=== PATIENT | male | born 1975 | race African-American/Black ===

== ENCOUNTER 2022-06-11 15:44 | Outpatient (CLI) | payer OTHER, SELFPAY ==
[2022-06-11 21:17] LABS: Albumin* 4.9 g/dL (3.3-5.0); Chloride* 101 mmol/L (96-114)
[2022-06-11 21:18] LABS: Sodium* 138 mmol/L (135-149)
[2022-06-11 21:20] LABS: Alkaline Phosphatase* 72 U/L (40-150); Aspartate Amino Transferase* 36 U/L (12-35); Bilirubin Total* 1.5 mg/dL (0.1-1.5); Blood Urea Nitrogen* 23 mg/dL (5-24); Carbon Dioxide* 28 mmol/L (20-32); Cholesterol* 217 mg/dL (90-199); Creatinine* 1.2 mg/dL (0.5-1.5); Estimated Glomerular Filt Rate 76 ml/min; Glucose* 89 mg/dL (60-115); Total Protein* 8.1 g/dL (6.0-8.3); Triglycerides* 108 mg/dL (40-149)
[2022-06-11 21:21] LABS: Alanine Aminotransferase* 32 U/L (4-50); Calcium* 9.5 mg/dL (8.4-10.6); HDL Cholesterol* 56 mg/dL (>=40); LDL Cholesterol Calculated 139 mg/dL (<100)
== END 2022-06-11 15:45 | disposition home or self-care (01) ==
PROVIDERS: PCP Internal Medicine; Visit Provider Internal Medicine
DX: Z00.00 Encounter for general adult medical examination without abnormal findings (principal); E78.5 Hyperlipidemia, unspecified; Z30.09 Encounter for other general counseling and advice on contraception
CPT/HCPCS: 80053; 80061

== ENCOUNTER 2022-07-03 07:02 | Outpatient (CLI) | payer OTHER, SELFPAY ==
--- NOTE | 2022-07-03 07:15 | CRLHL7_ITS ---
For Patients: As a result of the Century Cures Act, medical imaging exams and procedure reports are released immediately into your electronic medical record. You may view this report before your referring provider. If you have questions, please contact your health care provider. INDICATION: Upper abdominal pain TECHNIQUE: Ultrasound abdomen limited. Sonographic images of the right upper quadrant were obtained using sosa-scale and color Doppler images. COMPARISON: 06/01/2019 FINDINGS: Liver: Normal in size with diffuse fatty infiltration. No masses. No intrahepatic biliary dilatation. Gallbladder: No stones or sludge. Normal wall thickness. No pericholecystic fluid. Common bile duct: 6 mm. Pancreas: Normal. Right kidney: 10.7 cm. Normal echotexture and cortex. No masses, stones, or hydronephrosis. Vasculature: Proximal abdominal aorta is. IMPRESSION: Normal gallbladder and common bile duct. Fatty infiltration of the liver. Dictated by Giancarlo Cunningham MD @ 07/03/2022 8:53:09 AM (Electronically Signed)
== END 2022-07-03 07:03 | disposition home or self-care (01) ==
LOC: US 07:03
PROVIDERS: PCP Internal Medicine; Visit Provider Internal Medicine
DX: R10.9 Unspecified abdominal pain (principal); K76.0 Fatty (change of) liver, not elsewhere classified
CPT/HCPCS: 76705

== ENCOUNTER 2022-07-19 12:53 | Outpatient (CLI) | payer OTHER, SELFPAY | END 2022-07-19 12:54 | disposition home or self-care (01) | LOC: OP CLINIC 12:54 | PROVIDERS: PCP Internal Medicine; Visit Provider Internal Medicine | DX: Z12.11 Encounter for screening for malignant neoplasm of colon (principal); R19.8 Other specified symptoms and signs involving the digestive system and abdomen | CPT/HCPCS: 43239; 45378; 88305; 88342; 99153; J2250; J3010 ==

== ENCOUNTER 2023-09-09 08:15 | Outpatient (CLI) | payer OTHER, SELFPAY ==
--- OUTSIDE RECORDS SUMMARY | 2023-09-12 08:00 | XMS_ITS | Clinical Summary ---
Author Name Unknown Organization [facility] Address [place], [place] [address] Care Team Providers Care Health Care Aide Name Role Phone Unknown, Primary Care Provider Alexander e Allergies No known active allergies Medications Medication Sig Dispensed Refills Start Date End Date Status amLODIPine (NORVASC) 5 mg tabletIndications:Essentia l hypertension Take 1 tablet by mouth once daily. 90 tablet 3 04/03/2018 Active ezetimibe (ZETIA) 10 mg tabletIndications:Pure hypercholesterolemia Take 1 tablet by mouth once daily. Pt states no longer taking 01/11/2020 90 tablet 3 01/11/2020 Active carvediloL (COREG) 6.25 mg tabletIndications:Hyperten hayley Take 1 tablet by mouth 2 times daily with meals. 180 tablet 3 01/14/2020 Active rosuvastatin (CRESTOR) 10 mg tabletIndications:Pure hypercholesterolemia Take 1 Tablet (10 mg) by mouth at bedtime. Needs [facility] appt for further refills 90 tablet. 01/30/2021 Active Immunizations Name Administration Dates Next Due AMB Influenza, IIV3 (Age >=3 years)(Flu Clinic Only) 03/17/2013,03/05/2012,03/12/2011 AMB Influenza, IIV4 PF (=>6 mos Flulaval,Fluzone Fluarix)(Flu Clinic Only) 03/06/2020,03/01/2017,03/02/2016, 01 5,03/17/2014 Influenza, IIV3 (Age >=3 years) 03/13/2010,02/24 Td (Age >=7 Years) 09/04/2005 Family History Medical History Relation Name Comments Heart Disease Father Other Other 1 father renal tr ansplant in 40s Hypertension Other 2 Diabetes Other 3 Hyperlipidemia Other 4 dyslipidemia Relation Name Status Comments Father Other 1 Other 2 Other 3 Other 4 Social History Tobacco Use Types Packs/Day Years Used Date Smoking Tobacco: Never Smokeless Tobacco: Never Alcohol Use Standard Drinks/Week Comments Not Currently 0 (1 standard drink = 0.6 oz pur e alcohol) Social Connections Answer Date Recorded Frequency of Communication with Friends and Fami ly Not on file 06/02/2021 Financial Resource Strain Answer Date R ecorded Difficulty of Paying Living Expenses Not on file 06/02/2021 Difficulty of Paying Living Expenses Not on file 06/02/2021 Sex and Gender Information Value Date Recorded Sex Assigned at Not on file Gender Identity Not on file Sexual Orientation Not on file Obstetrics History Last Filed Vital Signs Vital Sign Reading Time Taken Comments Blood Pressure 122/84 04/03/2018 9:24 AM CDT Pulse 78 04/03/2018 9:24 AM CDT Temperature 37 ??C (98.6 ??F) 12/31/2006 8:15 AM CDT Respiratory Rate 16 04/03/2018 9:24 AM CDT Oxygen Saturation - - Inhaled Oxygen Concentration - - Weight 106.1 kg (234 lb) 01/11/2020 10:28 AM CDT Height - - Body Mass Index - - Plan of Treatment Health Maintenance Due Date Last Done Comments Tdap 1987 Depression screening for age 12+ 1988 HIV for age 15-65 1991 BMI (ht and wt on same day) for age 18+ 1994 Hepatitis C screening for age 18-79 1994 Tetanus booster 09/05/2015 09/04/2005 Colonoscopy through age 75 2021 Lipids for age 45-75 2021 09/17/2005 COVID-19 vaccine series ( season) 2023 Influenza for age 9-49 02/01/2024 0, 03/01/2017, 03/02/2016, Additional history exists Pneumococcal series for age 6-64 Aged Out No longer eligible based on patient's age to complete this topic Procedures Procedure Name Priority Date/Time Associated Diagnosis Comments LIPID PANEL Timed 09/17/2005 8:36 AM CDT from Last 3 Months or Most Recently Relevant to Health Maintenance Results * (ABNORMAL) LIPID PANEL (09/17/2005 8:36 AM CDT) CHOLESTEROL,TOTAL 211(H) 110 - 199 mg/dL [facility] 100 40 - 149 mg/dL [facility] HDL CHOLESTEROL 42 >40 mg/dL [facility] CHOL/HDL RATIO 5.02(H) <4.51 [facility] LDL CHOLESTEROL 149(H) <131 mg/dL [facility] PATIENT STATUS Fasting [facility] 09/17/2005 8:36 AM CDT 09/17/2005 2:53 PM CDT Rosaline Womack MD CHEMISTRY [facility] [place] ZIP [address] [address] from Last 3 Months or Most Recently Relevant to Health Maintenance Care Teams Health Care Aide Relationship Specialty Start Date End Date Unknown, PCP - General 12/13/05
== END 2023-09-09 08:16 | disposition home or self-care (01) ==
LOC: NFLDREF 09-12 07:59
PROVIDERS: PCP Internal Medicine; Referring Provider Internal Medicine; Visit Provider Internal Medicine
DX: R10.13 Epigastric pain (principal); Z13.228 Encounter for screening for other metabolic disorders; Z13.220 Encounter for screening for lipoid disorders
CPT/HCPCS: 80053; 80061

== ENCOUNTER 2023-10-21 13:12 | Outpatient (CLI) | payer OTHER, SELFPAY ==
--- OUTSIDE RECORDS SUMMARY | 2023-10-21 13:14 | XMS_ITS | Clinical Summary ---
Author Name Unknown Organization [facility] Address [place], [place] [address] Care Team Providers Care Wire Drawer Name Role Phone Unknown, Primary Care Provider Unavailash e Allergies No known active allergies Medications [...] CDT) CHOLESTEROL,TOTAL 211(H) 110 - 199 mg/dL [facility] 100 40 - 149 mg/dL [facility] HDL CHOLESTEROL 42 >40 mg/dL [facility] CHOL/HDL RATIO 5.02(H) <4.51 [facility] LDL CHOLESTEROL 149(H) <131 mg/dL [facility] PATIENT STATUS Fasting [facility] 09/17/2005 8:36 AM CDT 09/17/2005 2:53 PM CDT Rosaline Womack MD CHEMISTRY [facility] [place]NAL ZIP [address] [address] from Last 3 Months or Most Recently Relevant to Health Maintenance Care Teams Wire Drawer Relationship Specialty Start Date End Date Unknown, PCP - General 12/13/05
[2023-10-21 14:00] VITALS: BP 189/94; PULSE 118; RESP 18
--- NOTE | 2023-10-21 14:39 | W.PM.STED ---
Stress Test Note Date Date of test: 10/21/23 Providers Primary care provider: Delroy Maya Stress test physician: Raudel Butler Stress Test Note Stress test ordered: Stress Echo Indication for test: Chest pain Results discussion: This very pleasant gentleman presents here for the above test on referral, after discussion the risks benefits and side effects he would like to proceed. Pretest EKG shows normal sinus rhythm with a ventricular rate of 90, rhythm is sinus in a blood pressure 185/115. Standard Tristan protocol is followed over a 12 minute., he 2 evening metabolic equivalent of 12.1 Mets with a maximum heart rate of 172, this is 117% of the maximum. Test is terminated because of fulfillment of protocol, he did not have any chest pain shortness of breath or any other subjective anginal equivalent symptoms. Review of the tracing, showed no dysrhythmias, there is no ST wave changes suggestive of ischemia. Impression: Negative electrographic tracing of stress echo, conditioning was felt to be excellent. Patient had resting hypertension Follow up suggested: Home, rest, Cardiology will review the echo portion in way in. Clinical correlation with this will be needed. Patient left this testing facility in good condition at baseline
== END 2023-10-21 13:13 | disposition home or self-care (01) ==
LOC: STRESS 13:12
PROVIDERS: PCP Internal Medicine; Visit Provider Family Medicine
DX: R07.9 Chest pain, unspecified (principal)
CPT/HCPCS: 93016; 93325; 93351

== ENCOUNTER 2024-09-08 08:33 | Outpatient (CLI) | payer BC, SELFPAY | END 2024-09-08 08:34 | disposition home or self-care (01) | LOC: NFLDREF 09-13 02:48 | PROVIDERS: PCP Internal Medicine; Referring Provider Internal Medicine; Visit Provider Internal Medicine | DX: I10 Essential (primary) hypertension (principal); E78.5 Hyperlipidemia, unspecified; R10.13 Epigastric pain | CPT/HCPCS: 80053; 80061 ==

== ENCOUNTER 2025-03-15 07:49 | Outpatient (CLI) | payer BC, SELFPAY | END 2025-03-15 07:50 | disposition home or self-care (01) | LOC: NFLDREF 03-17 10:12 | PROVIDERS: PCP Internal Medicine; Referring Provider Internal Medicine; Visit Provider Internal Medicine | DX: E78.5 Hyperlipidemia, unspecified (principal) | CPT/HCPCS: 80061; G0103 ==